=== PATIENT | female | born 2000 | race Caucasian/White ===

== ENCOUNTER 2020-02-23 08:30 | Inpatient (IN) ==
[~2020-02-23 08:30] MED LIST: *HR* FentaNYL (PF) 100 MCG/2 ML VIAL IVP PRN; Azithromycin 500 MG in 0.9 % Sodium Chloride 250 ML IVPB ONE; Famotidine 20 MG/2 ML VIAL IVP PRN; Lidocaine 1% 20 ML MDV INFILT PRN; Metoclopramide 10 MG/2 ML VIAL IVP PRN; Ondansetron 4 MG/2 ML VIAL IVP PRN; Ringers Solution, Lactated 1,000 ML IVC SCH
[2020-02-23 08:56] LABS: Basophils % 0.3 %; Eosinophils # 0.1 K/mcL (0.0-0.6); Eosinophils % 0.4 %; Hematocrit 34.2 % (35.3-44.9); Hemoglobin 10.8 g/dL (11.5-15.4); Immature Granulocytes % 0.7 % (0-4); Lymphocytes # 1.8 K/mcL (0.6-4.6); Lymphocytes % 12.8 %; Mean Corpuscular HGB Conc 31.6 g/dL (31.6-35.5); Mean Corpuscular Hemoglobin 29.4 pg (28.0-33.3); Mean Corpuscular Volume 93.2 fL (83.0-100.0); Mean Platelet Volume 11.1 fL (9.4-12.4); Monocytes % 6.6 %; Neutrophils # 11.4 K/mcL (1.6-8.9); Platelet Count 293 K/mcL (140-400); Red Blood Count 3.67 M/mcL (3.82-4.97); Red Cell Distribution Width 13.4 % (11.5-14.5); Segmented Neutrophils % 79.2 %; White Blood Count 14.4 K/mcL (4.3-11.1)
[2020-02-23 09:04] LABS: Protein/Creatinine Ratio,Urine 0.2 mg/mg (0.00-0.20)
[2020-02-23 09:13] LABS: Alanine Aminotransferase 7 Units/L (7-52); Aspartate Amino Transferase 12 Units/L (13-39); BUN/Creatinine Ratio 22 (6-26); Blood Urea Nitrogen 11 mg/dL (6-20); Lactate Dehydrogenase 166 Units/L (140-271); Uric Acid 4.5 mg/dL (2.3-7.6); eGFR For African Americans > 60 (> 60); eGFR For Non-African Americans > 60 (> 60)
[2020-02-23] MEDS ORDERED: EPHEDrine 50 MG/ML VIAL IVP PRN (09:43)
[2020-02-23] MEDS ORDERED: Epidural Premix (fent/bupiv) 110 ML EP ONE (09:47)
[2020-02-23] MEDS: Epidural Premix (fent/bupiv) 110 ML EP SCH ×2 (10:02→16:51)
[2020-02-23] MEDS ORDERED: Oxytocin 20 units/ LR 1000 mL 20 UNIT/1,000 ML BAG IVC ONE ×2 (13:32→13:34)
[2020-02-23] MEDS ORDERED: Lidocaine 1% 20 ML MDV ONE (17:14)
[2020-02-23] MEDS ORDERED: Acetaminophen 325 MG TABLET PO PRN (20:00)
[2020-02-23] MEDS ORDERED: Benzocaine/Menthol 56 GM AEROSOL SPRAY TP PRN (20:00)
[2020-02-23] MEDS ORDERED: Measles/Mumps/Rubella Vacc 0.5 ML VIAL SQ PRN (20:00)
[2020-02-23] MEDS ORDERED: Lanolin 7 G OINT...G. TP PRN (20:00)
[2020-02-23] MEDS ORDERED: Oxytocin 20 units/ LR 1000 mL 20 UNIT/1,000 ML BAG IVC SCH (20:00)
[2020-02-23] MEDS: Ibuprofen 600 MG TABLET PO PRN (21:12)
[2020-02-24] MEDS: Ibuprofen 600 MG TABLET PO PRN (08:14)
[2020-02-24] MEDS ORDERED: Prenatal Vit/FA 1 EACH TABLET PO SCH (09:00)
[2020-02-24 15:46] VITALS: BP 125/78
== END 2020-02-24 16:15 | disposition home or self-care (01) | DRG 807 ==
LOC: 1NENULAB → 1NENUOBS 20:05
PROVIDERS: ADMIT Obstetrics & Gynecology; ATTEND Obstetrics & Gynecology

== ENCOUNTER 2021-07-21 08:11 | Inpatient (IN) ==
[2021-07-21] MEDS ORDERED: Ondansetron 4 MG/2 ML VIAL IVP PRN (09:25)
[2021-07-21] MEDS ORDERED: Metoclopramide 10 MG/2 ML VIAL IVP PRN (09:25)
[2021-07-21] MEDS ORDERED: *HR* Nalbuphine 10 MG/ML AMPUL IV PRN (09:25)
[2021-07-21] MEDS ORDERED: Famotidine 20 MG/2 ML VIAL IVP PRN (09:25)
[2021-07-21] MEDS ORDERED: Lidocaine 1% 20 ML MDV INFILT PRN (09:25)
[2021-07-21] MEDS ORDERED: Azithromycin 500 MG in 0.9 % Sodium Chloride 250 ML IVPB PRN (09:25)
[2021-07-21 10:11] LABS: Basophils % 0.2 %; Eosinophils # 0.1 K/mcL (0.0-0.6); Eosinophils % 0.6 %; Hematocrit 34.3 % (35.3-44.9); Hemoglobin 11.2 g/dL (11.5-15.4); Immature Granulocytes % 1.2 % (0-4); Lymphocytes # 2.3 K/mcL (0.6-4.6); Lymphocytes % 18.6 %; Mean Corpuscular HGB Conc 32.7 g/dL (31.6-35.5); Mean Corpuscular Hemoglobin 29.6 pg (28.0-33.3); Mean Corpuscular Volume 90.7 fL (83.0-100.0); Mean Platelet Volume 10.4 fL (9.4-12.4); Monocytes # 1.1 K/mcL (0.0-1.3); Monocytes % 9.2 %; Neutrophils # 8.6 K/mcL (1.6-8.9); Platelet Count 306 K/mcL (140-400); Red Blood Count 3.78 M/mcL (3.82-4.97); Red Cell Distribution Width 14.4 % (11.5-14.5); Segmented Neutrophils % 70.2 %; White Blood Count 12.2 K/mcL (4.3-11.1)
[2021-07-21 10:16] LABS: Amphetamine Screen,Urine Negative ng/mL (Cutoff=1000); Barbiturate Screen,Urine Negative ng/mL (Cutoff=200); Benzodiazepines Screen,Urine Negative ng/mL (Cutoff=200); Cannabinoid Screen,Urine Negative ng/mL (Cutoff = 50); Cocaine Screen,Urine Negative ng/mL (Cutoff= 300); Opiate Screen,Urine Negative ng/mL (Cutoff=300); Phencyclidine Screen,Urine Negative ng/mL (Cutoff=25)
[2021-07-21] MEDS ORDERED: miSOPROStoL 25 MCG TABLET VG PRN (10:26)
[2021-07-21] MEDS ORDERED: *HR* FentaNYL (PF) 100 MCG/2 ML VIAL EP ONE (13:56)
[2021-07-21] MEDS ORDERED: EPHEDrine 50 MG/ML VIAL IVP PRN (13:56)
[2021-07-21] MEDS ORDERED: Ropivacaine/PF 0.2% 20 ML VIAL EP ONE (13:56)
[2021-07-21] MEDS ORDERED: *HR* FentaNYL (PF) 100 MCG/2 ML VIAL ONE ×4 (13:59→23:53)
[2021-07-21] MEDS ORDERED: Ropivacaine/PF 0.2% 20 ML VIAL ONE ×2 (13:59→23:53)
[2021-07-21] MEDS ORDERED: Epidural Premix (fent/bupiv) 110 ML EP SCH (14:00)
[2021-07-21 14:22] LABS: Influenza A PCR Negative (Negative); Influenza B PCR Negative (Negative); Resp. Syncytial Virus PCR Negative (Negative)
[2021-07-21 14:23] LABS: SARS-CoV-2 by PCR (In House) Negative (Negative)
[2021-07-21] MEDS ORDERED: Oxytocin 20 units/ LR 1000 mL 20 UNIT/1,000 ML BAG IVC SCH (15:15)
[2021-07-21] MEDS: Ringers Solution, Lactated 1,000 ML IVC SCH (15:30)
[2021-07-22] MEDS ORDERED: *HR* FentaNYL (PF) 250 MCG/5 ML VIAL ONE (01:11)
[2021-07-22] MEDS ORDERED: *HR* FentaNYL (PF) 100 MCG/2 ML VIAL ONE ×2 (05:01→06:12)
[2021-07-22] MEDS: Ringers Solution, Lactated 1,000 ML IVC SCH (05:23)
[2021-07-22] MEDS ORDERED: Chloroprocaine/PF 20 ML VIAL INFILT ONE ×3 (06:11→07:20)
[2021-07-22] MEDS ORDERED: *HR* Morphine Sulfate/PF 10 MG/10 ML AMPUL ONE (06:12)
[2021-07-22] MEDS ORDERED: Ondansetron 4 MG/2 ML VIAL ONE (06:19)
[2021-07-22] MEDS ORDERED: Acetaminophen IV 1,000 MG/100 ML BAG IVPB ONE (06:19)
[2021-07-22] MEDS ORDERED: *HR* Propofol 200 MG/20 ML VIAL IVP ONE (06:28)
[2021-07-22] MEDS ORDERED: *HR* Oxytocin 10 UNIT/ML VIAL IM ONE ×4 (06:51→06:52)
[2021-07-22] MEDS ORDERED: Ketorolac 30 MG/ML VIAL ONE (07:08)
[2021-07-22] MEDS ORDERED: *HR* OxyCODONE Immed Rel 5 MG TABLET PO PRN (07:16)
[2021-07-22] MEDS ORDERED: *HR* FentaNYL (PF) 100 MCG/2 ML VIAL IVP PRN (07:16)
[2021-07-22] MEDS ORDERED: Ropivacaine/PF 0.2% 20 ML VIAL ONE (07:24)
[2021-07-22] MEDS ORDERED: Metoclopramide 10 MG/2 ML VIAL IVP PRN (11:52)
[2021-07-22] MEDS ORDERED: Ondansetron 4 MG/2 ML VIAL IVP PRN (11:52)
[2021-07-22] MEDS ORDERED: Tdap (Boostrix) Vaccine 0.5 ML SYRINGE IM ONE (11:52)
[2021-07-22] MEDS ORDERED: Oxytocin 20 units/ LR 1000 mL 20 UNIT/1,000 ML BAG IVC SCH (11:52)
[2021-07-22] MEDS: Azithromycin 250 MG TABLET PO SCH (13:32)
[2021-07-22] MEDS ORDERED: Ketorolac 30 MG/ML VIAL IVP SCH (13:50)
[2021-07-22] MEDS: metroNIDAZOLE 500 MG TABLET PO SCH ×2 (14:47→20:11)
[2021-07-22] MEDS: Simethicone 80 MG TAB.CHEW PO SCH (14:47)
[2021-07-22] MEDS: cephALEXin 500 MG CAPSULE PO SCH ×2 (14:47→20:11)
[2021-07-22] MEDS: Acetaminophen 325 MG TABLET PO SCH ×2 (16:01→17:51)
[2021-07-22] MEDS: *HR* OxyCODONE Immed Rel 5 MG TABLET PO PRN (16:02)
[2021-07-22] MEDS: Ibuprofen 600 MG TABLET PO SCH (20:11)
[2021-07-22] MEDS: *HR* Enoxaparin 60 MG/0.6 ML SYRINGE SQ SCH (20:12)
[2021-07-23] MEDS: Acetaminophen 325 MG TABLET PO SCH ×2 (00:25→08:56)
[2021-07-23] MEDS: Ibuprofen 600 MG TABLET PO SCH ×2 (00:25→08:56)
[2021-07-23 04:45] VITALS: O2SAT 97
[2021-07-23] MEDS: *HR* OxyCODONE Immed Rel 5 MG TABLET PO PRN ×2 (04:56→12:11)
[2021-07-23 07:41] VITALS: BP 129/86; PULSE 97; TEMP 98.4
[2021-07-23] MEDS: cephALEXin 500 MG CAPSULE PO SCH (08:55)
[2021-07-23] MEDS: metroNIDAZOLE 500 MG TABLET PO SCH (08:55)
[2021-07-23] MEDS: Simethicone 80 MG TAB.CHEW PO SCH (08:55)
[2021-07-23] MEDS: *HR* Enoxaparin 60 MG/0.6 ML SYRINGE SQ SCH (08:56)
[2021-07-23] MEDS ORDERED: Prenatal Vit/FA 1 EACH TABLET PO SCH (09:00)
[2021-07-23] MEDS: Azithromycin 250 MG TABLET PO SCH (12:10)
[2021-07-23 13:16] LABS: Basophils % 0.3 %; Eosinophils # 0.2 K/mcL (0.0-0.6); Eosinophils % 1.1 %; Hematocrit 29.2 % (35.3-44.9); Lymphocytes % 12.9 %; Mean Corpuscular HGB Conc 31.8 g/dL (31.6-35.5); Mean Corpuscular Hemoglobin 30.4 pg (28.0-33.3); Mean Corpuscular Volume 95.4 fL (83.0-100.0); Mean Platelet Volume 10.7 fL (9.4-12.4); Monocytes % 6.8 %; Platelet Count 283 K/mcL (140-400); Red Blood Count 3.06 M/mcL (3.82-4.97); Red Cell Distribution Width 14.6 % (11.5-14.5); Segmented Neutrophils % 77.9 %; White Blood Count 15.3 K/mcL (4.3-11.1)
[2021-07-23 13:21] LABS: Hemoglobin 9.3 g/dL (11.5-15.4)
== END 2021-07-23 12:19 | disposition home or self-care (01) | DRG 785 ==
LOC: 1NENULAB 08:11 → 1NENUOBS 07-22 11:13
PROVIDERS: ADMIT Obstetrics & Gynecology; ATTEND Obstetrics & Gynecology